=== PATIENT | female | born 1960 | race Caucasian/White ===

== ENCOUNTER 2021-02-03 12:39 | Emergency (ER) | payer BC ==
[2021-02-03] MEDS ORDERED: Polymyxin B/Trimethoprim 10 ML Bottle EYERT ONE (12:54)
--- NOTE | 2021-02-03 13:03 | EDM.PDOC ---
ED HPI GENERAL MEDICAL PROBLEM - General Chief Complaint: Eye Problems Stated Complaint: EYE ISSUE Time Seen by Provider: 02/03/21 12:57 Source of Information: Reports: Patient History Limitations: Reports: No Limitations - History of Present Illness INITIAL COMMENTS - FREE TEXT/NARRATIVE: 60 y/o F c/o R eye swelling and drainage of greenish yellow discharge for 2 days. Pt tarik she got glitter in her R eye 2 days ago and since then she has slowly developed the drainage. No pain or changes to vision. No fever, cough, chills, drugs, etoh., NKDA Right Eye Pain Score (Numeric/FACES): 1 - Related Data Allergies Allergy/AdvReac Type Severity Reaction Status Date / Time No Known Allergies Allergy Verified 02/03/21 12:55 Home Meds: Home Meds . [No Known Home Meds] 02/03/21 [History] Past Medical History - Past Health History Medical/Surgical History: Denies Medical/Surgical History ED ROS GENERAL - Review of Systems Review Of Systems: Comprehensive ROS is negative, except as noted in HPI. ED EXAM GENERAL W FULL EYE - Physical Exam Exam: See Below Exam Limited By: No Limitations General Appearance: Alert, No Apparent Distress Eye Exam: Right Eye: Conjunctival Injection (with green matteration in eyelashes), Bilateral Eye: PERRL Eyelids: Right: Erythema Cornea Exam: Bilateral: Normal Appearance Extraocular Movements: Bilateral: Intact Pupils: Normal Accommodation Pupillary Size: Bilateral: 5 mm Pupillary Reaction: Bilateral: Brisk Ears: Normal External Exam, Normal Canal, Hearing Grossly Normal, Normal TMs Nose: Normal Inspection, Normal Mucosa, No Blood Throat/Mouth: Normal Inspection, Normal Lips, Normal Teeth, Normal Gums, Normal Oropharynx, Normal Voice, No Airway Compromise Head: Atraumatic, Normocephalic Neck: Normal Inspection, Supple, Non-Tender, Full Range of Motion Respiratory/Chest: No Respiratory Distress, Lungs Clear, Normal Breath Sounds, No Accessory Muscle Use, Chest Non-Tender Cardiovascular: Normal Peripheral Pulses, Regular Rate, Rhythm, No Edema, No Gallop, No JVD, No Murmur, No Rub Course - Vital Signs Last Recorded V/S: Last Vital Signs Temp 97.8 F 02/03/21 12:52 Pulse 70 02/03/21 12:52 Resp 14 02/03/21 12:52 BP 117/90 02/03/21 12:52 Pulse Ox 95 02/03/21 12:52 - Orders/Labs/Meds Orders: Active Orders 24 hr Category Date Time Status Polymyxin B/Trimethoprim [PolyTrim Ophth Soln] Med 02/03/21 12:54 Once 1 ml EYERT ONETIME ONE Departure - Departure Time of Disposition: 13:00 Disposition: Home, Self-Care 01 Condition: Good Clinical Impression: Conjunctivitis Qualifiers: Conjunctivitis type: acute Acute conjunctivitis type: unspecified Laterality: right Qualified Code(s): H10.31 - Unspecified acute conjunctivitis, right eye - Discharge Information *PRESCRIPTION DRUG MONITORING PROGRAM REVIEWED*: Not Applicable *COPY OF PRESCRIPTION DRUG MONITORING REPORT IN PATIENT CHERY: Not Applicable Instructions: Bacterial Conjunctivitis, Adult, [id number] Additional Instructions: Use your antibiotic drops and instructed for seven days. If your symptoms do not improve in 7 days or any new symptoms or concerns develop contact your primary care facility or return to the ER. Sepsis Event Note (ED) - Evaluation Sepsis Screening Result: No Definite Risk - Focused Exam Vital Signs: Vital Signs Temp Pulse Resp BP Pulse Ox 02/03/21 12:52 97.8 F 70 14 117/90 95 - My Orders Last 24 Hours: My Active Orders 02/03/21 12:54 Polymyxin B/Trimethoprim [PolyTrim Ophth Soln] 1 ml EYERT ONETIME ONE - Assessment/Plan Last 24 Hours: My Active Orders 02/03/21 12:54 Polymyxin B/Trimethoprim [PolyTrim Ophth Soln] 1 ml EYERT ONETIME ONE
== END 2021-02-03 13:09 | disposition home or self-care (01) ==
LOC: DL.ED 12:39
DX: H10.31 Unspecified acute conjunctivitis, right eye (principal)
CPT/HCPCS: 99282; A9270